=== PATIENT | female | born 1980 | race Caucasian/White ===

== ENCOUNTER 2017-07-26 08:55 | Emergency (ER) | payer MEDICAID, OTHER ==
[2017-07-26 09:04] VITALS: BP 114/74; PULSE 80; RESP 16; TEMP 98.1; O2SAT 100
[2017-07-26 09:33] LABS: URINE BILIRUBIN NEGATIVE (NEGATIVE); URINE BLOOD NEGATIVE (NEGATIVE); URINE COLOR Yellow (YELLOW); URINE GLUCOSE (UA) NORMAL (Normal); URINE KETONE NEGATIVE (NEGATIVE); URINE PROTEIN NEGATIVE (NEGATIVE); URINE UROBILINOGEN NORMAL mg/dL (0.2-1.0)
[2017-07-26 09:40] LABS: RBC URINE 2 /hpf (0-3); URINE LEUKOCYTE ESTERASE 2+ Leu/uL (Negative); WBC URINE 10 /hpf (0-5)
--- NOTE | 2017-07-26 09:42 | C.PDOC ---
History Of Present Illness 36 year old female presents to the ED for evaluation of dysuria, increased urinary frequency and a foul-smelling odor from urine which began around 3 days ago. Patient reports history of a urinary tract infection in the past, and notes her current symptoms feel similar. Patient denies fever, chills, back pain , abdominal pain, vaginal discharge. Time Seen by Provider: 07/26/17 09:09 Chief Complaint (Nursing): Female Genitourinary History Per: Patient History/Exam Limitations: no limitations Onset/Duration Of Symptoms: Days (3) Current Symptoms Are (Timing): Still Present Quality Of Discomfort: denies: "Pain" Associated Symptoms: Urinary Symptoms (dysuria, urinary frequency, foul- smelling urine ). denies: Fever, Chills Additional History Per: Patient Abnormal Vaginal Bleeding: No Past Medical History Reviewed: Historical Data, Nursing Documentation, Vital Signs Vital Signs: Last Vital Signs Temp 98.1 F 07/26/17 09:01 Pulse 80 07/26/17 09:01 Resp 16 07/26/17 09:01 BP 114/74 07/26/17 09:01 Pulse Ox 100 07/26/17 12:55 - Medical History PMH: No Chronic Diseases Surgical History: No Surg Hx Family History: States: Unknown Family Hx - Social History Hx Alcohol Use: No Hx Substance Use: No Review Of Systems Constitutional: Negative for: Fever, Chills Gastrointestinal: Negative for: Abdominal Pain Genitourinary: Positive for: Dysuria, Frequency, Other (foul-smelling urine ). Negative for: Vaginal Discharge Physical Exam - Physical Exam Appears: Non-toxic, No Acute Distress Skin: Normal Color, Warm, Dry Head: Atraumatic, Normacephalic Eye(s): bilateral: Normal Inspection, EOMI Nose: Normal Oral Mucosa: Moist Neck: Normal ROM, Supple Chest: Symmetrical, No Deformity Cardiovascular: Rhythm Regular Respiratory: Normal Breath Sounds Gastrointestinal/Abdominal: Soft, No Tenderness, No Guarding, No Rebound Back: Normal Inspection, No CVA Tenderness, No Vertebral Tenderness, No Paraspinal Tenderness Extremity: Normal ROM, Capillary Refill (less than 2 seconds ) Neurological/Psych: Oriented x3, Normal Speech, Normal Cognition Gait: Steady ED Course And Treatment O2 Sat by Pulse Oximetry: 100 (on RA) Pulse Ox Interpretation: Normal Progress Note: Urinalysis ordered. Urine culture obtained and sent to lab for evaluation. Urinalysis results are consistent with a urinary tract infection. On reassesment, patient is resting comfortably, showing no signs of distress and is stable for discharge with Rx. Patient is advised to follow up with her PMD within 2-5 days for further evaluation. Disposition - Disposition Disposition: HOME/ ROUTINE Disposition Time: 09:41 Condition: STABLE Additional Instructions: Follow up with your primary medical doctor or clinic in 2-5 days for further evaluation. Take medications as prescribed. Return to the emergency department at any time if symptoms persist or worsen. Prescriptions: Nitrofurantoin Macrocrystals [Macrobid] 1 cap PO BID #14 cap Instructions: Urinary Tract Infection in Women (ED) Forms: [employer] (Moldovan) - Clinical Impression Clinical Impression: UTI (urinary tract infection) - PA / ERP CONSULTANT / Resident Statement MD/DO has reviewed & agrees with the documentation as recorded. - Scribe Statement The provider has reviewed the documentation as recorded by the Scribe (Alice) All medical record entries made by the Scribe were at my direction and personally dictated by me. I have reviewed the chart and agree that the record accurately reflects my personal performance of the history, physical exam, medical decision making, and the department course for this patient. I have also personally directed, reviewed, and agree with the discharge instructions and disposition.
== END 2017-07-26 09:49 | disposition home or self-care (01) ==
LOC: C.ER 08:55
DX: N39.0 Urinary tract infection, site not specified (principal)

== ENCOUNTER 2017-10-13 17:23 | Emergency (ER) | payer BC, OTHER ==
[2017-10-13 18:17] VITALS: BP 107/75; PULSE 96; RESP 15; TEMP 99.1; O2SAT 98
[2017-10-13] MEDS ORDERED: guaiFENesin 100 mg/5 ml Syrup UD PO STA (18:31)
--- NOTE | 2017-10-13 18:35 | C.PDOC ---
History Of Present Illness 37 year old female presents to the ER for evaluation of subjective fever, non- productive cough,nasal congestion, and malaise which has been present for 4 days. Patient reports that she received a flu shot last week. Patient states that her son has similar symptoms since yesterday. Patient reports that she did not take any medications. Time Seen by Provider: 10/13/17 18:25 Chief Complaint (Nursing): Flu-like Symptoms History Per: Patient History/Exam Limitations: no limitations Onset/Duration Of Symptoms: Days Current Symptoms Are (Timing): Still Present Sick Contacts (Context): Family Member(s) (son has similar symptoms) Associated Symptoms: Fever (subjective fever), Nasal Congestion Past Medical History Reviewed: Historical Data, Nursing Documentation, Vital Signs Vital Signs: Last Vital Signs Temp 99.1 F 10/13/17 18:16 Pulse 96 H 10/13/17 18:16 Resp 15 10/13/17 18:16 BP 107/75 10/13/17 18:16 Pulse Ox 98 10/13/17 18:46 - Medical History PMH: No Chronic Diseases Surgical History: No Surg Hx Family History: States: No Known Family Hx - Social History Hx Alcohol Use: No Hx Substance Use: No - Immunization History Hx Tetanus Toxoid Vaccination: No Hx Influenza Vaccination: Yes Hx Pneumococcal Vaccination: No Review Of Systems Constitutional: Positive for: Fever (subjective fever), Malaise. Negative for: Chills ENT: Positive for: Nose Congestion Respiratory: Positive for: Cough (non-productive cough). Negative for: Wheezing Physical Exam - Physical Exam Appears: Non-toxic, No Acute Distress Skin: Normal Color, Warm Head: Atraumatic, Normacephalic Eye(s): bilateral: Normal Inspection, EOMI Ear(s): Bilateral: Normal Nose: Normal Throat: No Erythema Neck: Supple Chest: Symmetrical Cardiovascular: Rhythm Regular Respiratory: Normal Breath Sounds, No Accessory Muscle Use, No Rhonchi, No Wheezing Extremity: Bilateral: Atraumatic, Normal Color And Temperature, Normal ROM Neurological/Psych: Oriented x3, Normal Speech, Other (no focal deficits) ED Course And Treatment O2 Sat by Pulse Oximetry: 98 (RA) Pulse Ox Interpretation: Normal Medical Decision Making Medical Decision Making: Impression: viral URI Plan: Sudafed and Robitussin Re-eval: Patient has no fever and in no acute distress. Patient appears well hydrated and nontoxic. Lungs clear bilaterally. Patient advised symptoms are viral and to take symptom relief medications. Rx given. Patient stable for discharge Disposition Counseled Patient/Family Regarding: Diagnosis, Need For Followup, Rx Given - Disposition Referrals: [facility] [Outside] [facility] [Outside] Disposition: HOME/ ROUTINE Disposition Time: 19:00 Condition: GOOD Additional Instructions: You have viral upper respiratory infection. Take Tylenol or Motrin alternating every 4-6 hours for Fever 100.4F or higher. Rest and drink plenty of fluids. May use cool mist humidifier or vaporizer in room. Try taking over the counter antihistamine (Claritin, Arlene, Zyrtec), Decongestant or Cough medicine ( Mucinex) as needed every 6-8 hours. Follow up with your primary medical doctor or clinic in 1 week for further evaluation. Prescriptions: Benzonatate [Tessalon Perles] 100 mg PO TID #30 sgl Pseudoephedrine HCl [Sudafed] 30 mg PO Q8 #24 tablet Sod Chlor,Sod Bicarb/Neti Pot [[place] Saline Nasal Netirinse Kit] 1 each NS DAILY # 1 pack.w.dev Instructions: Upper Respiratory Infection (ED) Forms: [employer] (Syriac) - POA Present On Arrival: None - Clinical Impression Clinical Impression: Upper respiratory infection - PA / TRANSPORTER RADIOLOGY / Resident Statement MD/DO has reviewed & agrees with the documentation as recorded. - Scribe Statement The provider has reviewed the documentation as recorded by the Renny Yanes Provider Attestation All medical record entries made by the Renny were at my direction and personally dictated by me. I have reviewed the chart and agree that the record accurately reflects my personal performance of the history, physical exam, medical decision making, and the department course for this patient. I have also personally directed, reviewed, and agree with the discharge instructions and disposition.
[2017-10-13] MEDS ORDERED: guaiFENesin 100 mg/5 ml Syrup UD ONE (18:46)
== END 2017-10-13 19:00 | disposition home or self-care (01) ==
LOC: C.ER 17:23
DX: J06.9 Acute upper respiratory infection, unspecified (principal)

== ENCOUNTER 2018-05-29 10:42 | Emergency (ER) | payer BC, MEDICAID, OTHER ==
[2018-05-29 10:56] VITALS: O2SAT 98
[2018-05-29] MEDS ORDERED: Sodium Chloride 0.9% 1,000 ML IV ONE (11:05)
[2018-05-29] MEDS ORDERED: Sodium Chloride 0.9% 1,000 ML ONE (11:17)
--- NOTE | 2018-05-29 11:27 | C.PDOC ---
History Of Present Illness 37 year old female with PMHx of chr. anemia ( baseline Hb 10) , s/p blood transfusions 3 yrs ago, presents to the ED for an evaluation of dysfunctional vaginal bleeding for the past 1 month. Patient states vaginal bleeding is intermittent "last few days and than off for few days" and associated with mild diffused lower abdominal cramping. Pt admits, for past few days developed some postural dizziness " concern because I has anemia". Patient reports she was seen by OBGYN 2 wks ago "but no treatment was given". Otherwise, pt denies fever, chills, headache, vertigo, visual changes, chest pain, SOB, palpitations , nausea, vomiting, diarrhea, back pain, urinary symptoms, denies vaginal irritation. Ambulate to ED for evaluation with stable gait, not in any apparnet distress. Time Seen by Provider: 05/29/18 11:01 Chief Complaint (Nursing): Female Genitourinary History Per: Patient History/Exam Limitations: no limitations Onset/Duration Of Symptoms: Days Current Symptoms Are (Timing): Still Present Quality Of Discomfort: Cramping Associated Symptoms: Other (dizziness ). denies: Fever, Nausea, Vomiting, Urinary Symptoms Abnormal Vaginal Bleeding: Yes Last Menstral Period: 04/29/18 Past Medical History Reviewed: Historical Data, Nursing Documentation, Vital Signs Vital Signs: Last Vital Signs Temp 98.9 F 05/29/18 10:52 Pulse 85 05/29/18 10:52 Resp 18 05/29/18 10:52 BP 142/77 05/29/18 10:52 Pulse Ox 98 05/29/18 12:58 - Medical History PMH: Anemia Surgical History: Family History: States: No Known Family Hx - Social History Hx Alcohol Use: No Hx Substance Use: No - Immunization History Hx Tetanus Toxoid Vaccination: No Hx Influenza Vaccination: Yes Hx Pneumococcal Vaccination: No Review Of Systems Except As Marked, All Systems Reviewed And Found Negative. Constitutional: Negative for: Fever, Chills Cardiovascular: Negative for: Chest Pain, Palpitations Gastrointestinal: Positive for: Other (Lower abdominal cramping ). Negative for : Nausea, Vomiting, Diarrhea Genitourinary: Positive for: Vaginal Bleeding. Negative for: Dysuria, Incontinence, Hematuria, Vaginal Discharge Neurological: Positive for: Dizziness Physical Exam - Physical Exam Appears: Well, Non-toxic, No Acute Distress Skin: Normal Color, Warm, Dry, No Rash, No Ecchymosis Head: Normacephalic Eye(s): bilateral: PERRL Nose: No Flaring, No Discharge Oral Mucosa: Moist Throat: No Erythema, No Drooling Neck: Trachea Midline, Supple Cardiovascular: Rhythm Regular, No Murmur, No JVD, Other ((-) carotid bruits B/L ) Respiratory: No Decreased Breath Sounds, No Accessory Muscle Use, No Rales, No Rhonchi, No Stridor, No Wheezing Gastrointestinal/Abdominal: Soft, No Tenderness, No Distention, No Guarding, No Rebound Back: No CVA Tenderness Pelvic: Other (refused due to menstrual) Extremity: Normal ROM, No Pedal Edema, No Swelling Neurological/Psych: Oriented x3, Normal Speech Gait: Steady ED Course And Treatment - Laboratory Results Result Diagrams: 05/29/18 11:34 08 11:34 Lab Interpretation: No Changes Compared To Prior Results Urine POC: Negative ECG: Interpreted By Me, Viewed By Me ECG Rhythm: Sinus Rhythm ECG Interpretation: Normal Interpretation Of ECG: SR@71/min, NAD, no acute T wave or ST-T changes. O2 Sat by Pulse Oximetry: 98 (RA) Pulse Ox Interpretation: Normal Progress Note: On re-eval, pt is afebrile, hemodynamically stable. Non-toxic. Ambulatory in ED with stable gait. PulseOx 99% on RA. ENT: no acute findings. Neck: Supple, (-) JVD, (-) carotid bruits B/L. Lungs: CTA B/L, BS equal B/L. Abd: benign, (-) guarding, (-) rebound. Back: (-) CVA tenderness. Neurologically intact. Blood work review and hemoglobin appears at baseline, no other acute changes noted. UA- normal study, preg (-). Patient has clinical findings c/w DUB, chr. anemia, dizziness,. Pt advised and ref. to F/U with PMD , [employer] In 2-3 days for re-eval. return to ED if any worsening or new changes. Disposition Counseled Patient/Family Regarding: Studies Performed, Diagnosis, Need For Followup - Disposition [facility] Disposition: HOME/ ROUTINE Disposition Time: 12:42 Condition: STABLE Additional Instructions: Encourage fluids Take Iron supplement daily for 2-3 months, consider laxative due to side effect of iron such as constipation Follow up with PMD, [employer] in 2-3 days for re-evaluation. return to ED if any worsening or new changes. Instructions: Anemia Caused by Low Iron, Heavy Periods, Dizziness, Nonvertigo, (DC) Forms: Work/School/Gym Excuse, [facility] (Jamaican) - Clinical Impression Clinical Impression: DUB (dysfunctional uterine bleeding), Anemia - PA / LANCE CREWMEMBER / Resident Statement MD/DO has reviewed & agrees with the documentation as recorded. - Scribe Statement The provider has reviewed the documentation as recorded by the Scribe Grace Tovar All medical record entries made by the Renny were at my direction and personally dictated by me. I have reviewed the chart and agree that the record accurately reflects my personal performance of the history, physical exam, medical decision making, and the department course for this patient. I have also personally directed, reviewed, and agree with the discharge instructions and disposition.
[2018-05-29 11:48] LABS: HCG,QUALITATIVE URINE NEGATIVE (NEGATIVE)
[2018-05-29 11:49] LABS: BASO % 0.8 % (0.0-2.0); EOS # 0.1 K/uL (0.0-0.7); EOS % 2.4 % (0.0-4.0); HEMOGLOBIN 10.8 g/dL (11.0-16.0); LYMPH # 1.8 K/uL (1.0-4.3); LYMPH % 30.3 % (20.0-40.0); MEAN CELL VOLUME 77.4 fL (81.0-99.0); MEAN CORPUSCULAR HEMOGLOBIN 25.2 pg (27.0-31.0); MEAN CORPUSCULAR HGB CONC 32.5 g/dL (33.0-37.0); MEAN PLATELET VOLUME 9.1 fL (7.2-11.7); MONO # 0.5 K/uL (0.0-0.8); MONO % 9.4 % (0.0-10.0); NEUT # 3.3 K/uL (1.8-7.0); NEUT % 57.1 % (50.0-75.0); RBC 4.29 Mil/uL (3.80-5.20); RED CELL DISTRIBUTION WIDTH 17.4 % (11.5-14.5); WHITE BLOOD COUNT 5.8 K/uL (4.8-10.8)
[2018-05-29 11:53] LABS: ALB/GLOB RATIO 1.2 (1.0-2.1); ALT/SGPT 18 U/L (9-52); AST/SGOT 16 U/L (14-36); BLOOD UREA NITROGEN 9 mg/dL (7-17); GFR AFRICAN-AMERICAN > 60; GFR NON-AFRICAN AMERICAN > 60
[2018-05-29 12:02] LABS: SQUAMOUS EPITHIAL 13 /hpf (0-5); URINE BACTERIA RARE (<OCC); URINE BILIRUBIN NEGATIVE (NEGATIVE); URINE BLOOD 3+ (NEGATIVE); URINE CLARITY Hazy (Clear); URINE COLOR Yellow (YELLOW); URINE GLUCOSE (UA) NORMAL (Normal); URINE LEUKOCYTE ESTERASE TRACE Leu/uL (Negative); URINE PROTEIN NEGATIVE (NEGATIVE); URINE UROBILINOGEN NORMAL mg/dL (0.2-1.0)
[2018-05-29 12:04] LABS: INR 1.2; PROTHROMBIN TIME 12.7 SECONDS (9.7-12.2)
[2018-05-29 13:19] VITALS: BP 120/78; PULSE 70; RESP 20; TEMP 98
== END 2018-05-29 13:18 | disposition home or self-care (01) ==
LOC: C.ER 10:42
DX: N93.8 Other specified abnormal uterine and vaginal bleeding (principal); D64.9 Anemia, unspecified
CPT/HCPCS: 80053; 81001; 84703; 85025; 85610; 85730; 93005; 96360; 99284; J7030

== ENCOUNTER 2018-07-21 15:41 | Emergency (ER) | payer OTHER, MEDICAID ==
[2018-07-21 15:55] VITALS: RESP 18; O2SAT 94
--- NOTE | 2018-07-21 16:09 | C.PDOC ---
History Of Present Illness 37 yo female w/PMHx of anemia, migraine, come in for evaluation of intermittent frontal headache radiating to occipital head for past 7 days. Pt reports. " last night was unable to sleep due to pain, ringing on my left ear". Pt admits, cold sx prior to onset of headache. Otherwise, pt denies high fever, chills, denies worse headache of life, dizziness, vertigo, ear discharge, visual changes, neck pain, CP, SOB, palpitation, abd. pain, N/V/D, back pain, UTI sx. Ambulate to Ed for evaluation, not in any apparent distress. Time Seen by Provider: 07/21/18 15:56 Chief Complaint (Nursing): Headache History Per: Patient Past Medical History Reviewed: Historical Data, Nursing Documentation, Vital Signs Vital Signs: Last Vital Signs Temp 98.3 F 07/21/18 15:50 Pulse 105 H 07/21/18 15:50 Resp 18 07/21/18 15:50 BP 119/82 07/21/18 15:50 Pulse Ox 94 L 07/21/18 16:17 - Medical History PMH: Anemia, Migraine Surgical History: Family History: States: Unknown Family Hx - Social History Hx Alcohol Use: No Hx Substance Use: No - Immunization History Hx Tetanus Toxoid Vaccination: No Hx Influenza Vaccination: Yes Hx Pneumococcal Vaccination: No Review Of Systems Except As Marked, All Systems Reviewed And Found Negative. Constitutional: Negative for: Fever, Chills Eyes: Negative for: Vision Change, Eyelid Inflammation, Redness ENT: Positive for: Nose Congestion. Negative for: Ear Discharge, Nose Discharge, Throat Pain, Throat Swelling Cardiovascular: Negative for: Chest Pain, Palpitations Respiratory: Negative for: Cough, Shortness of Breath, Wheezing Gastrointestinal: Negative for: Nausea, Vomiting, Abdominal Pain, Diarrhea Genitourinary: Negative for: Incontinence Musculoskeletal: Negative for: Neck Pain, Back Pain Neurological: Positive for: Headache. Negative for: Weakness, Numbness, Altered Mental Status, Dizziness Physical Exam - Physical Exam Appears: Well, Non-toxic, No Acute Distress Skin: Normal Color, Warm, Dry, No Rash Head: Atraumatic, Normacephalic Eye(s): bilateral: PERRL, EOMI Ear(s): Bilateral: Normal Nose: No Flaring, No Discharge Oral Mucosa: Moist Throat: No Erythema, No Drooling Neck: Trachea Midline, Supple Cardiovascular: Rhythm Regular, No Murmur, No JVD Respiratory: No Decreased Breath Sounds, No Accessory Muscle Use, No Stridor, No Wheezing Gastrointestinal/Abdominal: Soft, No Tenderness, No Distention, No Guarding Extremity: Normal ROM, No Deformity, No Swelling Neurological/Psych: Oriented x3, Normal Speech ED Course And Treatment O2 Sat by Pulse Oximetry: 94 Progress Note: On re-eval, pt is afebrile, hemodynamicaly stable. Non-toxic. Ambulatory in Ed with stable gait. Head: AT/NC. ENT: no acute findings. Neck: Supple, (-) meningeal sign, (-) JVD, (-) carotid bruits B/L. Lungs: CTA B/L, BS equal B/L. CVS: (+)S1S2, reg. Abd: benign. neurologicaly intact. UA results review (+) UTI sx. Pt has clinical finidngs c/w sinus headache, UTI. Pt advised. ref. to f/u with PMD in 2-3 days for re-eval. return to ED if any worsening or new changes. Disposition Counseled Patient/Family Regarding: Studies Performed, Diagnosis, Need For Followup, Rx Given - Disposition Referrals: [facility] [Outside] Disposition: HOME/ ROUTINE Disposition Time: 16:49 Condition: STABLE Additional Instructions: Encourage fluids Take medication as prescribed Follow up with PMD in 2-3 days for re-evaluation. Return to ED if any worsening or new hcanges. Prescriptions: Nitrofurantoin Macrocrystals [Macrobid] 1 cap PO BID #14 cap traMADol [Ultram] 50 mg PO TID #7 tab Instructions: Sinus Headache (DC), Urinary Tract Infections in Adults Forms: [email or web address] [facility] (Portuguese) - Clinical Impression Clinical Impression: Headache, UTI (urinary tract infection)
[2018-07-21 16:40] LABS: SQUAMOUS EPITHIAL 26 /hpf (0-5); URINE BACTERIA FEW (<OCC); URINE BILIRUBIN NEGATIVE (NEGATIVE); URINE BLOOD NEGATIVE (NEGATIVE); URINE CLARITY Hazy (Clear); URINE COLOR Yellow (YELLOW); URINE GLUCOSE (UA) NORMAL (Normal); URINE LEUKOCYTE ESTERASE 2+ Leu/uL (Negative); URINE PROTEIN NEGATIVE (NEGATIVE); URINE UROBILINOGEN NORMAL mg/dL (0.2-1.0)
[2018-07-21 16:55] VITALS: BP 125/81; PULSE 102; TEMP 98.9
== END 2018-07-21 16:57 | disposition home or self-care (01) ==
LOC: C.ER 15:41
DX: R51 Headache (principal); N39.0 Urinary tract infection, site not specified

== ENCOUNTER 2018-08-04 20:38 | Emergency (ER) | payer OTHER, MEDICAID ==
[2018-08-04] MEDS ORDERED: Albuterol-Ipratrop 3 mg / 0.5 (3 ml) UD IH STA (21:49)
[2018-08-04] MEDS ORDERED: Albuterol 0.083% Inhal Sol (2.5 mg/3 mL) UD IH STA (21:49)
--- NOTE | 2018-08-04 21:53 | C.PDOC ---
History Of Present Illness 37 y/o female presents to the ED with complaints of chest tightness, onset following procedure this afternoon. Patient states she underwent upper endoscopy today in preparation for bariatric surgery. When she came to and awoke, patient noted a tightness in her chest and felt short of breath on exertion. Patient reports a history of bronchospasm following anesthesia in the past. Also notes when she breathes cold air, she gets reactive airway disease symptoms, for which she has an inhaler. She did not use the inhaler today due to fear of interaction with anesthesia. On arrival patient has low grade temp and is tachycardic. She continues to feel chest tightness. No prior URI symptoms, cough, or other complaints. Patient states she rarely requires the inhaler, last used months ago. Time Seen by Provider: 08/04/18 21:43 Chief Complaint (Nursing): Chest Pain History Per: Patient History/Exam Limitations: no limitations Onset/Duration Of Symptoms: Hrs Current Symptoms Are (Timing): Still Present Quality: Tightness Exacerbating Factors: Exertion Past Medical History Reviewed: Historical Data, Nursing Documentation, Vital Signs Vital Signs: Last Vital Signs Temp 99.4 F 08/04/18 20:47 Pulse 115 H 08/04/18 20:47 Resp 16 08/04/18 20:47 BP 117/82 08/04/18 20:47 Pulse Ox 99 08/04/18 20:47 - Medical History PMH: Anemia, Asthma, Migraine Surgical History: Endoscopy, Family History: States: Unknown Family Hx - Social History Hx Alcohol Use: No Hx Substance Use: No - Immunization History Hx Tetanus Toxoid Vaccination: No Hx Influenza Vaccination: No Hx Pneumococcal Vaccination: No Review Of Systems Constitutional: Negative for: Fever, Chills Eyes: Negative for: Vision Change ENT: Negative for: Nose Congestion, Throat Pain Cardiovascular: Positive for: Chest Pain (tightness). Negative for: Palpitations Respiratory: Positive for: SOB with Excertion. Negative for: Cough, Hemoptysis Gastrointestinal: Negative for: Nausea, Vomiting Neurological: Negative for: Weakness, Headache, Dizziness Physical Exam - Physical Exam Appears: Non-toxic, No Acute Distress Skin: Warm, Dry Head: Atraumatic, Normacephalic Eye(s): bilateral: Normal Inspection Oral Mucosa: Moist Neck: Normal ROM Chest: Symmetrical Cardiovascular: Rhythm Regular (but tachy) Respiratory: Decreased Breath Sounds (breath sounds diminished bilaterally), Rales (faint rales at the left lung base), No Wheezing, Other (No respiratory distress, no retractions) Gastrointestinal/Abdominal: Soft, No Tenderness, No Distention Extremity: Normal ROM, No Calf Tenderness, No Swelling Pulses: Left Dorsalis Pedis: Normal, Right Dorsalis Pedis: Normal Neurological/Psych: Oriented x3, Normal Speech ED Course And Treatment - Laboratory Results Result Diagrams: 08/04/18 22:16 08/04/18 22:16 Lab Interpretation: Abnormal (WBC 13.0 with left shift) ECG: Interpreted By Me ECG Rhythm: Sinus Tachycardia ECG Interpretation: Abnormal O2 Sat by Pulse Oximetry: 99 (RA) Pulse Ox Interpretation: Normal - Radiology CXR: Interpreted by Me CXR Interpretation: Yes: Infiltrates (LLL) Reevaluation Time: :00 Reassessment Condition: Improved (after nebulizer treatments.) Medical Decision Making Medical Decision Making: Initial Impression: 37 y/o F with chest tightness and SOB on exertion, s/p endoscopy earlier today Initial Plan: Blood work ordered. EKG and CXR ordered and reviewed. Administered duoneb and albuterol nebulizers. Will reassess after nebulizers. Disposition Counseled Patient/Family Regarding: Studies Performed, Diagnosis, Need For Followup, Rx Given - Disposition Referrals: [facility] [Outside] Disposition: HOME/ ROUTINE Disposition Time: : Condition: STABLE Prescriptions: Azithromycin [Zithromax] 250 mg PO DAILY #6 tab Instructions: Pneumonia in Adults Forms: [facility] (Cuban) - Clinical Impression Clinical Impression: Pneumonia - Scribe Statement The provider has reviewed the documentation as recorded by the Scribe (Vera Rosado) Provider Attestation: All medical record entries made by the Scribe were at my direction and personally dictated by me. I have reviewed the chart and agree that the record accurately reflects my personal performance of the history, physical exam, medical decision making, and the department course for this patient. I have also personally directed, reviewed, and agree with the discharge instructions and disposition.
[2018-08-04 22:19] LABS: BASO # 0.1 K/uL (0.0-0.2); BASO % 0.6 % (0.0-2.0); EOS # 0.1 K/uL (0.0-0.7); EOS % 0.7 % (0.0-4.0); HEMOGLOBIN 10.8 g/dL (11.0-16.0); LYMPH # 2.3 K/uL (1.0-4.3); LYMPH % 17.5 % (20.0-40.0); MEAN CELL VOLUME 78.3 fL (81.0-99.0); MEAN PLATELET VOLUME 8.5 fL (7.2-11.7); MONO # 0.5 K/uL (0.0-0.8); MONO % 3.8 % (0.0-10.0); NEUT # 10.1 K/uL (1.8-7.0); NEUT % 77.4 % (50.0-75.0); RBC 4.3 Mil/uL (3.80-5.20); RED CELL DISTRIBUTION WIDTH 17.4 % (11.5-14.5)
[2018-08-04] MEDS ORDERED: Albuterol-Ipratrop 3 mg / 0.5 (3 ml) UD ONE (22:21)
[2018-08-04 22:32] LABS: ALB/GLOB RATIO 1.1 (1.0-2.1); ALT/SGPT 15 U/L (9-52); AST/SGOT 18 U/L (14-36); BLOOD UREA NITROGEN 10 mg/dL (7-17); CALCIUM 9.3 mg/dl (8.6-10.4); GFR NON-AFRICAN AMERICAN > 60
[2018-08-04] MEDS ORDERED: Albuterol 0.083% Inhal Sol (2.5 mg/3 mL) UD ONE (23:47)
[2018-08-05] MEDS ORDERED: cefTRIAXone IV 1 gm in Dextros 50 ML IVPB ONE (00:37)
[2018-08-05] MEDS ORDERED: cefTRIAXone 1 gm 1 GM/100 ML BAG IVPB ONE (00:46)
[2018-08-05] MEDS ORDERED: Azithromycin 500mg/250ML NS 500 MG/250 ML BAG IV STA (00:51)
[2018-08-05] MEDS ORDERED: Azithromycin 500mg/250ML NS 500 MG/250 ML BAG IVPB ONE (01:07)
[2018-08-05 03:32] VITALS: BP 108/65; PULSE 90; RESP 18; TEMP 98.3; O2SAT 100
--- NOTE | 2018-08-05 08:19 | RAD ---
Chest x-ray single frontal view HISTORY: Shortness of breath. COMPARISON: 10/22/2016 Findings: Elevated left hemidiaphragm. Confluent consolidative changes seen at the left lung base. Venous congestion. More linear consolidative changes seen in the right hilar region. Bilateral hilar prominence. Cardiomegaly. Impression: Elevated left hemidiaphragm. Confluent consolidative changes seen at the left lung base. Venous congestion. More linear consolidative changes seen in the right hilar region. Bilateral hilar prominence. Cardiomegaly.
--- NOTE | 2018-08-05 09:32 | RAD ---
Chest x-ray two views History: Pneumonia. COMPARISON: 08/04/2018 Findings: Persistent confluent consolidative changes noted within the left lung base concerning infiltrate/pneumonia. Additional linear consolidative changes seen extending from the right infrahilar region to the right midlung. Venous congestion. Cardiomegaly. Degenerative changes in the spine and shoulders. Impression: Persistent confluent consolidative changes noted within the left lung base concerning infiltrate/pneumonia. Post treatment interval follow-up is recommended to ensure resolution and exclude additional etiology. Additional linear consolidative changes seen extending from the right infrahilar region to the right midlung. Venous congestion. Cardiomegaly.
--- NOTE | 2018-08-05 16:43 | CARD ---
APPROVED REPORT Date of service: 08/04/2018 EKG Measurement Heart [id number] <Conclusion> Sinus tachycardia Moderate voltage criteria for LVH, may be normal variant Borderline ECG
== END 2018-08-05 03:32 | disposition home or self-care (01) ==
LOC: C.ER 20:38
DX: J18.9 Pneumonia, unspecified organism (principal)
CPT/HCPCS: 71045; 71046; 80053; 85025; 87040; 93005; 94640; 96365; 96367; 99284; J0456; J0696

== ENCOUNTER 2019-01-05 12:21 | Emergency (ER) | payer OTHER, MEDICAID | END 2019-01-05 16:43 | disposition home or self-care (01) | LOC: C.ER 12:21 ==